=== PATIENT | male | born 1980 | race Two or more races ===

== ENCOUNTER 2018-05-10 12:55 | Emergency (ER) | payer MEDICAID ==
[~2018-05-10] VITALS: Ht 170.2 cm; Wt 68.0 kg
[~2018-05-10 12:55] MED LIST: IBUP-2030
[2018-05-10] MEDS ORDERED: KETOROLAC 60MG/2ML VIAL IM ONE (15:30)
[2018-05-10] MEDS ORDERED: METOCLOPRAMIDE HCL 5MG TABLET PO ONE (15:30)
[2018-05-10 18:41] VITALS: BP 126/68
== END 2018-05-10 18:44 | disposition home or self-care (01) ==
LOC: ER 12:55
DX: R51 Headache (principal); F17.210 Nicotine dependence, cigarettes, uncomplicated
CPT/HCPCS: 82962; 96372; 99283; J1885; J8597

== ENCOUNTER 2019-02-20 17:26 | Emergency (ER) | payer MEDICAID ==
[~2019-02-20] VITALS: Ht 170.2 cm; Wt 82.0 kg
[2019-02-20 18:22] VITALS: BP 130/82
== END 2019-02-20 22:00 | disposition left against medical advice (07) ==
LOC: ER 17:26
DX: R30.9 Painful micturition, unspecified (principal); Z53.21 Procedure and treatment not carried out due to patient leaving prior to being seen by health care provider

== ENCOUNTER 2020-02-26 15:57 | Emergency (ER) | payer SELFPAY ==
[~2020-02-26] VITALS: Ht 170.2 cm; Wt 68.0 kg
[2020-02-26 16:00] VITALS: BP 141/86
== END 2020-02-26 18:11 | disposition left against medical advice (07) ==
LOC: ER 15:57
DX: R07.89 Other chest pain (principal); Z53.21 Procedure and treatment not carried out due to patient leaving prior to being seen by health care provider

== ENCOUNTER 2021-10-12 09:28 | Emergency (ER) | payer MEDICAID ==
[~2021-10-12] VITALS: Ht 167.6 cm; Wt 72.0 kg
[2021-10-12 10:18] VITALS: BP 117/63
[2021-10-12] MEDS ORDERED: DOXY100C5 MT (11:13)
[2021-10-12] MEDS ORDERED: IBUP-2029 MT (11:13)
[2021-10-12] MEDS ORDERED: TRAM50TA3 MT (11:13)
[2021-10-12] MEDS ORDERED: CEPH500T MT (11:13)
[2021-10-12] MEDS ORDERED: TETANUS, DIPHTHERIA, PERTUSSIS VAC/PF 0.5ML (>10YR OLD) IM ONE (11:15)
[2021-10-12] MEDS ORDERED: HYDROCODONE/ACETAMINOPHEN 5/325MG TABLET PO ONE (11:15)
== END 2021-10-12 12:05 | disposition home or self-care (01) ==
LOC: ER 09:28
DX: L02.411 Cutaneous abscess of right axilla (principal)
CPT/HCPCS: 90471; 90715; 99283

== ENCOUNTER 2021-10-14 09:30 | Emergency (ER) | payer MEDICAID ==
[~2021-10-14] VITALS: Ht 170.2 cm; Wt 66.0 kg
[~2021-10-14 09:30] MED LIST changes: +CEPH500T MT; +DOXY100C5 MT; +IBUP-2029 MT; +TRAM50TA3 MT
[2021-10-14] MEDS ORDERED: IBUPROFEN 600MG TABLET PO ONE ×2 (10:00)
[2021-10-14] MEDS ORDERED: BACITRACIN ZINC OINT UDPKT TOP ONE ×2 (10:00)
[2021-10-14] MEDS ORDERED: ACETAMINOPHEN 325MG TABLET PO ONE ×2 (10:00)
[2021-10-14] MEDS ORDERED: TETANUS, DIPHTHERIA, PERTUSSIS VAC/PF 0.5ML (>10YR OLD) IM ONE (10:00)
[2021-10-14] MEDS ORDERED: LIDOCAINE HCL/EPINEPHRINE 1%-EPI 1:100,000 20 ML VIAL INFIL ONE ×2 (10:00)
[2021-10-14] MEDS ORDERED: LIDOCAINE HCL/EPINEPHRINE 1%-EPI 1:100,000 10 ML VIAL INFIL ONE ×2 (10:30)
[2021-10-14 10:59] VITALS: BP 129/69
[2021-10-14] MEDS ORDERED: CLIN300C12 MT (12:10)
== END 2021-10-14 12:46 | disposition home or self-care (01) ==
LOC: ER 09:30
DX: L02.411 Cutaneous abscess of right axilla (principal)
CPT/HCPCS: 10060; 90471; 90715; 99284; J3490; Z7610